=== PATIENT | female | born 1980 | race Caucasian/White ===

== ENCOUNTER 2016-06-09 14:52 | Emergency (ER) | payer OTHER ==
[~2016-06-09] VITALS: Ht 154.9 cm; Wt 104.0 kg
[~2016-06-09 14:52] MED LIST: BUSPIRONE HCL10 MG PO; CLONIDINE HCL0.1 MG PO; DIAZEPAM2 MG PO; FLEXERIL10 MG PO; NO MEDS; TERBINAFINE HC250 MG PO; TRAZODONE HCL100 MG PO; TYLENOL EXTRA500 M1 PO
[2016-06-09 15:23] LABS: HEMATOCRIT 39.9 % (36.0-46.0); MCH 28.3 PG (29.0-34.0); MCHC 33.3 G/DL (30.0-36.0); MCV 84.9 FL (83-99); MEAN PLAT.VOLUME 9.4 uM^3 (9.5-12.4); PLATELET COUNT 483 K/uL (156-360); RBC DIS.WIDTH-CV 12.8 % (11.8-14.6); RBC DIS.WIDTH-SD 39.8 % (39-53); WHITE BLOOD COUNT 12.1 K/uL (4.1-10.2)
[2016-06-09 15:36] LABS: CHLORIDE 101 mEq/L (99-109); POTASSIUM 3.9 mEq/L (3.7-5.4); SODIUM 135 mEq/L (136-147)
[2016-06-09 15:38] LABS: GLUCOSE 105 mg/dL (70-99)
[2016-06-09 15:40] LABS: ANION GAP 12 MEQ/L (2-14)
[2016-06-09 15:42] LABS: GFR ESTIMATE (CALCULATED) > 59 mL/min/
[2016-06-09 15:43] LABS: UREA NITROGEN (BUN) 10 mg/dL (9-23)
[2016-06-09] MEDS ORDERED: ADDERALL30 MG PO (16:57)
[2016-06-09] MEDS ORDERED: LEVAQUIN750 MG PO (18:43)
[2016-06-09] MEDS ORDERED: VENTOLIN HFA18 GM IH (18:44)
[2016-06-09 19:07] VITALS: BP 139/109
== END 2016-06-09 19:07 | disposition home or self-care (01) ==
LOC: EME 14:52
DX: J18.9 Pneumonia, unspecified organism (principal); F17.200 Nicotine dependence, unspecified, uncomplicated; Z88.6 Allergy status to analgesic agent; Z88.5 Allergy status to narcotic agent
CPT/HCPCS: 71020; 80048; 85027; 99281; 99283

== ENCOUNTER 2017-02-15 12:54 | Emergency (ER) | payer OTHER ==
[~2017-02-15 12:54] MED LIST changes: +ADDERALL30 MG PO; +LEVAQUIN750 MG PO; +VENTOLIN HFA18 GM IH
[2017-02-15 13:21] LABS: BASOPHIL COUNT 0.1 K/uL (0-0.1); EOSINOPHIL (%) 0.1 % (0-5); HEMATOCRIT 40.7 % (36.0-46.0); IMMATURE GRANULOCYTE (%) 2.4 % (0.0-0.7); IMMATURE GRANULOCYTE COUNT 0.6 K/uL; INSTRUMENT ABS NEUTROPHIL CT 20.4 K/uL; LYMPHOCYTE COUNT 3.9 K/uL (1.0-2.8); MCH 26.1 PG (29.0-34.0); MCHC 31.9 G/DL (30.0-36.0); MCV 81.6 FL (83-99); MONOCYTE (%) 3.2 % (3-12); MONOCYTE COUNT 0.8 K/uL (0-0.8); NEUTROPHIL COUNT 20.4 K/uL (1.8-6.4); RBC DIS.WIDTH-CV 15.3 % (11.8-14.6); RBC DIS.WIDTH-SD 45.1 % (39-53); RED BLOOD COUNT 4.99 M/uL (3.80-5.20); WHITE BLOOD COUNT 25.8 K/uL (4.1-10.2)
[2017-02-15 13:28] LABS: AMYLASE 44 IU/L (1-118); CHLORIDE 103 mEq/L (99-109); POTASSIUM 4.8 mEq/L (3.7-5.4); SODIUM 133 mEq/L (136-147)
[2017-02-15 13:30] LABS: GLUCOSE 195 mg/dL (70-99)
[2017-02-15 13:31] LABS: ANION GAP 13 MEQ/L (2-14)
[2017-02-15 13:33] LABS: SERUM ETHYL ALCOHOL < 10 mg/dL
[2017-02-15 13:34] LABS: GFR ESTIMATE (CALCULATED) 54 mL/min/
[2017-02-15 13:35] LABS: UREA NITROGEN (BUN) 16 mg/dL (9-23)
[2017-02-15 13:37] LABS: LIPASE 43 U/L (1.0-51.0)
[2017-02-15 13:42] LABS: QUANTITATIVE HCG < 4.0 MIU/ML
[2017-02-15 14:04] LABS: MEAN PLAT.VOLUME ND uM^3 (9.5-12.4); PLATELET CLUMPS PRESENT - PLATELET COUNT APPEARS ADQ.; PLATELET COUNT UNABLE TO REPORT K/uL (156-360)
[2017-02-15 15:19] LABS: ADD MEDTOX COMMENT Y; AMPHETAMINE NEGATIVE (500 ng/mL); BARBITURATES NEGATIVE (200 ng/mL); BENZODIAZEPINES NEGATIVE (150 ng/mL); COCAINE PRESUMPTIVE POSITIVE (150 ng/mL); INTERNAL CONTROLS VALID? YES; METHADONE NEGATIVE (200 ng/mL); METHAMPHETAMINE NEGATIVE (500 ng/mL); OPIATES (MORPHINE) PRESUMPTIVE POSITIVE (100 ng/mL); OXYCODONE NEGATIVE (100 ng/mL); PHENCYCLIDINE NEGATIVE (25 ng/mL); PROPOXYPHENE NEGATIVE (300 ng/mL); THC CANNABINOIDS NEGATIVE (50 ng/mL); TRICYCLIC ANTIDEPRESSANTS NEGATIVE (300 ng/mL)
[2017-02-15 15:38] LABS: COLOR BLOODY ((YELLOW))
[2017-02-15 15:39] LABS: GLUCOSE (STRIP) NEGATIVE; KETONES NEGATIVE; LEUKOCYTES MODERATE; NITRITE NEGATIVE; PROTEIN (STRIP) 100; UROBILINOGEN 0.2 MG/DL (0.2-1.0)
[2017-02-15 15:40] LABS: ADD MIUA? YES; BILIRUBIN NEGATIVE; BLOOD LARGE
[2017-02-15 16:10] LABS: RED BLOOD CELLS TNTC /HPF (0-5)
[2017-02-15 16:11] LABS: AMMONIUM URATES CRYSTALS RARE; BACTERIA RARE /HPF; EPITHELIAL CELLS RARE /HPF; UCUL ADDED? YES; WHITE BLOOD CELLS RARE /HPF (0-5)
[2017-02-15 16:12] LABS: MUCUS TRACE /LPF
== END 2017-02-15 15:05 | disposition short-term general hospital (02) ==
LOC: TRA 12:54
PROVIDERS: Emergency Medicine
DX: S42.302A Unspecified fracture of shaft of humerus, left arm, initial encounter for closed fracture (principal); S42.301A Unspecified fracture of shaft of humerus, right arm, initial encounter for closed fracture; S42.102A Fracture of unspecified part of scapula, left shoulder, initial encounter for closed fracture; S42.101A Fracture of unspecified part of scapula, right shoulder, initial encounter for closed fracture; S73.005A Unspecified dislocation of left hip, initial encounter; V03.10XA Pedestrian on foot injured in collision with car, pick-up truck or van in traffic accident, initial encounter; Y93.01 Activity, walking, marching and hiking; Y92.488 Other paved roadways as the place of occurrence of the external cause; S36.113A Laceration of liver, unspecified degree, initial encounter; S32.502A Unspecified fracture of left pubis, initial encounter for closed fracture; S32.10XA Unspecified fracture of sacrum, initial encounter for closed fracture; S22.43XA Multiple fractures of ribs, bilateral, initial encounter for closed fracture; S27.321A Contusion of lung, unilateral, initial encounter; S02.2XXA Fracture of nasal bones, initial encounter for closed fracture; S01.111A Laceration without foreign body of right eyelid and periocular area, initial encounter; S37.011A Minor contusion of right kidney, initial encounter; T14.8XXA Other injury of unspecified body region, initial encounter; F11.20 Opioid dependence, uncomplicated; Z72.0 Tobacco use; Z23 Encounter for immunization
CPT/HCPCS: 70450; 70486; 71260; 72125; 72129; 72132; 73060; 73552; 74177; 80048; 81003; 82150; 83690; 84702; 84999; 85025; 86850; 86900; 86901; 86920; 87086; 99281; 99285; C1751; G0480; J0690; J3010; P9016

== ENCOUNTER 2017-04-29 20:26 | Observation (INO) | payer OTHER ==
[~2017-04-29] VITALS: Ht 157.5 cm; Wt 88.2 kg
[2017-04-29 23:27] LABS: BASOPHIL (%) 0.6 % (0-1); EOSINOPHIL (%) 1.5 % (0-5); EOSINOPHIL COUNT 0.1 K/uL (0-0.3); HEMATOCRIT 35.7 % (36.0-46.0); HEMOGLOBIN 11.6 G/DL (11.9-15.5); IMMATURE GRANULOCYTE (%) 0.8 % (0.0-0.7); LYMPHOCYTE (%) 36.7 % (15-42); LYMPHOCYTE COUNT 2.4 K/uL (1.0-2.8); MCHC 32.5 G/DL (30.0-36.0); MCV 89.3 FL (83-99); MONOCYTE (%) 8.5 % (3-12); MONOCYTE COUNT 0.6 K/uL (0-0.8); NEUTROPHIL (%) 51.9 % (45-76); NEUTROPHIL COUNT 3.4 K/uL (1.8-6.4); PLATELET COUNT 319 K/uL (156-360); RBC DIS.WIDTH-CV 12.7 % (11.8-14.6); RBC DIS.WIDTH-SD 41.6 % (39-53); WHITE BLOOD COUNT 6.5 K/uL (4.1-10.2)
[2017-04-29 23:36] LABS: ALBUMIN 3.9 g/dL (3.2-4.8); CHLORIDE 103 mEq/L (99-109); POTASSIUM 3.8 mEq/L (3.7-5.4); SODIUM 141 mEq/L (136-147)
[2017-04-29 23:38] LABS: GLUCOSE 92 mg/dL (70-99); TOTAL PROTEIN 9.3 g/dL (6.4-8.3)
[2017-04-29 23:40] LABS: TOTAL BILIRUBIN 0.3 mg/dL (0.0-1.0)
[2017-04-29 23:42] LABS: ALKALINE PHOSPHATASE 96 IU/L (3-129); CREATININE 0.7 mg/dL (0.6-1.3); GFR ESTIMATE (CALCULATED) > 59 mL/min/
[2017-04-29 23:43] LABS: UREA NITROGEN (BUN) 17 mg/dL (9-23)
[2017-04-29 23:44] LABS: AST (GOT) 15 IU/L (2-34)
[2017-04-29 23:45] LABS: ALT (GPT) 16 IU/L (3-49)
[2017-04-30] VITALS (7 sets, daily range): BP systolic 109–144; BP diastolic 58–99
[2017-04-30 02:49] LABS: APPEARANCE SL.HAZY ((CLEAR)); BILIRUBIN NEGATIVE; BLOOD NEGATIVE; COLOR YELLOW ((YELLOW)); GLUCOSE (STRIP) NEGATIVE; KETONES 5; LEUKOCYTES SMALL; NITRITE NEGATIVE; PROTEIN (STRIP) NEGATIVE; SPECIFIC GRAVITY 1.018 (1.000-1.030); UROBILINOGEN 0.2 MG/DL (0.2-1.0)
[2017-04-30 02:52] LABS: BACTERIA RARE /HPF; EPITHELIAL CELLS RARE /HPF; MUCUS TRACE /LPF; RED BLOOD CELLS 0-5 /HPF (0-5); UCUL ADDED? YES; WHITE BLOOD CELLS 30-40 /HPF (0-5)
[2017-04-30 03:04] LABS: INTER. NORMALIZED RATIO 2.9
[2017-04-30] MEDS ORDERED: DIAZEPAM5 MG PO (08:27)
[2017-04-30] MEDS ORDERED: ESCITALOPRAM OX10 MG PO (08:36)
[2017-04-30] MEDS ORDERED: GUAIFENESIN600 M1 PO (08:38)
[2017-04-30] MEDS ORDERED: LIDOCAINE700 MG TP (08:42)
[2017-04-30] MEDS ORDERED: MILK OF MAGN PO (08:43)
[2017-04-30] MEDS ORDERED: MELATIN3 MG PO (08:44)
[2017-04-30] MEDS ORDERED: DOLOPHINE HCL10 MG PO (08:47)
[2017-04-30] MEDS ORDERED: MIRALAX17 GM PO (08:47)
[2017-04-30] MEDS ORDERED: SENNA-DOCUSATE1 EAC1 PO (08:49)
[2017-04-30] MEDS ORDERED: SEROQUEL50 MG PO (08:50)
[2017-04-30 11:49] LABS: INTER. NORMALIZED RATIO 2.8
[2017-04-30] MEDS ORDERED: COUMADIN1 MG PO (14:50)
[2017-05-01 07:32] VITALS: BP 146/94
[2017-05-01 09:46] LABS: INTER. NORMALIZED RATIO 2.1
[2017-05-01 10:43] VITALS: BP 130/94
[2017-05-01 16:42] VITALS: BP 123/96
[2017-05-01 19:38] VITALS: BP 129/83
[2017-05-01 23:30] VITALS: BP 158/78
[2017-05-02 03:32] VITALS: BP 158/88
[2017-05-02 08:30] VITALS: BP 139/97
[2017-05-02 09:05] LABS: INTER. NORMALIZED RATIO 1.7
[2017-05-02 11:56] VITALS: BP 149/90
[2017-05-02 16:30] VITALS: BP 146/85
[2017-05-02 19:42] VITALS: BP 127/84
[2017-05-02 23:00] VITALS: BP 154/84
[2017-05-03] VITALS (8 sets, daily range): BP systolic 133–168; BP diastolic 72–109
[2017-05-04 00:43] VITALS: BP 140/80
[2017-05-04 08:29] VITALS: BP 141/104
[2017-05-04 09:06] LABS: INTER. NORMALIZED RATIO 2.2
[2017-05-04 15:36] VITALS: BP 136/95
[2017-05-05 00:39] VITALS: BP 140/90
[2017-05-05 07:53] VITALS: BP 138/92
[2017-05-05 09:31] LABS: BASOPHIL (%) 0.5 % (0-1); EOSINOPHIL COUNT 0.3 K/uL (0-0.3); HEMOGLOBIN 11.6 G/DL (11.9-15.5); IMMATURE GRANULOCYTE (%) 0.5 % (0.0-0.7); LYMPHOCYTE (%) 47.4 % (15-42); LYMPHOCYTE COUNT 3.8 K/uL (1.0-2.8); MCH 28.9 PG (29.0-34.0); MCHC 32.2 G/DL (30.0-36.0); MCV 89.8 FL (83-99); MONOCYTE (%) 7.4 % (3-12); MONOCYTE COUNT 0.6 K/uL (0-0.8); NEUTROPHIL (%) 40.2 % (45-76); NEUTROPHIL COUNT 3.2 K/uL (1.8-6.4); PLATELET COUNT 365 K/uL (156-360); RBC DIS.WIDTH-CV 13.2 % (11.8-14.6); RBC DIS.WIDTH-SD 43.4 % (39-53); RED BLOOD COUNT 4.01 M/uL (3.80-5.20)
[2017-05-05 10:00] LABS: ALBUMIN 3.6 G/DL (3.2-4.8); ALKALINE PHOSPHATASE 74 IU/L (3-129); ALT (GPT) 9 IU/L (3-49); AST (GOT) 9 IU/L (2-34); CHLORIDE 102 MEQ/L (99-109); CREATININE 0.5 MG/DL (0.6-1.3); GFR ESTIMATE (CALCULATED) > 59 mL/min/; GLUCOSE 147 mg/dL (70-99); POTASSIUM 3.7 MEQ/L (3.7-5.4); SODIUM 140 MEQ/L (136-147); TOTAL BILIRUBIN 0.2 MG/DL (0.0-1.0); TOTAL PROTEIN 7.8 G/DL (6.4-8.3); UREA NITROGEN (BUN) 18 mg/dL (9-23)
[2017-05-05 10:02] LABS: INTER. NORMALIZED RATIO 2.3
[2017-05-05] MEDS ORDERED: DOXYCYCLINE HY100 M3 PO (12:46)
[2017-05-05] MEDS ORDERED: DUONEB 2.5-0.5 M3 ML AEROSOL (12:46)
[2017-05-05] MEDS ORDERED: OXYCODONE HCL5 MG PO (12:48)
[2017-05-05] MEDS ORDERED: DOLOPHINE HCL10 MG PO (12:48)
[2017-05-05] MEDS ORDERED: ADVAIR HFA120 INHALA IH (12:48)
[2017-05-05] MEDS ORDERED: DIAZEPAM5 MG PO (12:48)
[2017-05-05 15:08] VITALS: BP 123/80
[2017-05-05 23:35] VITALS: BP 138/76
[2017-05-06 07:54] VITALS: BP 121/93
[2017-05-06 09:16] LABS: INTER. NORMALIZED RATIO 1.9
[2017-05-06] MEDS ORDERED: DIAZEPAM5 MG PO (14:23)
[2017-05-06] MEDS ORDERED: METHADONE10 MG PO (14:23)
[2017-05-06 15:40] VITALS: BP 142/78
[2017-05-06 23:33] VITALS: BP 133/88
[2017-05-07 08:03] VITALS: BP 141/83
[2017-05-07 09:37] LABS: INTER. NORMALIZED RATIO 1.9
[2017-05-07 16:31] VITALS: BP 143/78
[2017-05-07 23:30] VITALS: BP 110/59
[2017-05-08 07:54] VITALS: BP 138/91
[2017-05-08 08:50] LABS: INTER. NORMALIZED RATIO 2.1
[2017-05-08 16:38] VITALS: BP 136/88
[2017-05-08 23:39] VITALS: BP 115/57
[2017-05-09 07:23] VITALS: BP 139/83
[2017-05-09 15:17] VITALS: BP 116/76
[2017-05-09 23:24] VITALS: BP 128/79
[2017-05-10 07:38] VITALS: BP 135/78
[2017-05-10 16:15] VITALS: BP 117/74
[2017-05-10 23:10] VITALS: BP 125/60
[2017-05-11 07:43] VITALS: BP 127/66
[2017-05-11 11:25] VITALS: BP 113/69
[2017-05-11] MEDS ORDERED: OXYCODONE HCL5 MG PO (16:32)
[2017-05-11] MEDS ORDERED: DIAZEPAM5 MG PO (16:32)
[2017-05-11] MEDS ORDERED: DOLOPHINE HCL10 MG PO (16:32)
[2017-05-11 16:33] VITALS: BP 119/55
[2017-05-11] MEDS ORDERED: OXYCODONE HCL10 MG PO (16:41)
[2017-05-12 00:25] VITALS: BP 126/83
[2017-05-12 00:32] VITALS: BP 160/77
[2017-05-12 08:33] VITALS: BP 134/88
[2017-05-12 09:24] LABS: BASOPHIL (%) 0.3 % (0-1); EOSINOPHIL (%) 3.6 % (0-5); EOSINOPHIL COUNT 0.2 K/uL (0-0.3); HEMATOCRIT 35.7 % (36.0-46.0); HEMOGLOBIN 11.3 G/DL (11.9-15.5); IMMATURE GRANULOCYTE (%) 0.6 % (0.0-0.7); LYMPHOCYTE (%) 31.4 % (15-42); MCH 29.4 PG (29.0-34.0); MCHC 31.7 G/DL (30.0-36.0); MCV 92.7 FL (83-99); MONOCYTE (%) 6.4 % (3-12); MONOCYTE COUNT 0.4 K/uL (0-0.8); NEUTROPHIL (%) 57.7 % (45-76); NEUTROPHIL COUNT 3.7 K/uL (1.8-6.4); PLATELET COUNT 281 K/uL (156-360); RBC DIS.WIDTH-CV 14.1 % (11.8-14.6); RBC DIS.WIDTH-SD 47.6 % (39-53); RED BLOOD COUNT 3.85 M/uL (3.80-5.20); WHITE BLOOD COUNT 6.4 K/uL (4.1-10.2)
[2017-05-12] MEDS ORDERED: AUGMENTIN875 MG PO (13:00)
[2017-05-12] MEDS ORDERED: DOXYCYCLINE HY100 MG PO (13:00)
== END 2017-05-12 17:04 ==
LOC: EME 20:26 → EDOF 04-30 01:10 → 3EAST 04-30 01:10 → EDOF 04-30 01:10 → ENRESERV 04-30 01:36 → 3EAST 04-30 04:15
PROVIDERS: Emergency Medicine; Family Medicine
DX: J96.90 Respiratory failure, unspecified, unspecified whether with hypoxia or hypercapnia (principal); J95.09 Other tracheostomy complication; Z87.828 Personal history of other (healed) physical injury and trauma; J44.0 Chronic obstructive pulmonary disease with (acute) lower respiratory infection; J20.9 Acute bronchitis, unspecified; G89.29 Other chronic pain; Z86.718 Personal history of other venous thrombosis and embolism; E66.01 Morbid (severe) obesity due to excess calories; Z68.35 Body mass index [BMI] 35.0-35.9, adult; F11.20 Opioid dependence, uncomplicated; F41.9 Anxiety disorder, unspecified; Z79.01 Long term (current) use of anticoagulants; R26.2 Difficulty in walking, not elsewhere classified; N61.1 Abscess of the breast and nipple; B19.20 Unspecified viral hepatitis C without hepatic coma; R30.0 Dysuria; K59.00 Constipation, unspecified; M79.1 Myalgia; M79.605 Pain in left leg; M79.604 Pain in right leg; Z87.891 Personal history of nicotine dependence; Z88.5 Allergy status to narcotic agent; Z83.3 Family history of diabetes mellitus; Z82.49 Family history of ischemic heart disease and other diseases of the circulatory system; Z81.8 Family history of other mental and behavioral disorders; F32.9 Major depressive disorder, single episode, unspecified
CPT/HCPCS: 71045; 80053; 81003; 85025; 85610; 87077; 87086; 87186; 94640; 94640 76; 94799; 97530 GO; 97530 GP; 99281; 99285; G0378; G8978 GP CM; G8979 GP CM; G8987 GO CL; G8988 GO CK; J0696; J7512

== ENCOUNTER 2017-06-20 18:16 | Emergency (ER) | payer OTHER ==
[~2017-06-20] VITALS: Ht 154.9 cm; Wt 89.9 kg
[~2017-06-20 18:16] MED LIST changes: +ADVAIR HFA120 INHALA IH; +AUGMENTIN875 MG PO; +COUMADIN1 MG PO; +DIAZEPAM5 MG PO; +DOLOPHINE HCL10 MG PO; +DOXYCYCLINE HY100 M3 PO; +DOXYCYCLINE HY100 MG PO; +DUONEB 2.5-0.5 M3 ML AEROSOL; +ESCITALOPRAM OX10 MG PO; +GUAIFENESIN600 M1 PO; +LIDOCAINE700 MG TP; +MELATIN3 MG PO; +METHADONE10 MG PO; +MILK OF MAGN PO; +MIRALAX17 GM PO; +OXYCODONE HCL10 MG PO; +OXYCODONE HCL5 MG PO; +SENNA-DOCUSATE1 EAC1 PO; +SEROQUEL50 MG PO
[2017-06-20 20:32] VITALS: BP 131/104
== END 2017-06-20 20:33 | disposition home or self-care (01) ==
LOC: EME 18:16
DX: G89.29 Other chronic pain (principal); V09.9XXD Pedestrian injured in unspecified transport accident, subsequent encounter; F17.200 Nicotine dependence, unspecified, uncomplicated; Z79.01 Long term (current) use of anticoagulants; Z88.5 Allergy status to narcotic agent; Z88.6 Allergy status to analgesic agent
CPT/HCPCS: 99281; 99283